=== PATIENT | male | born 1980 ===

== ENCOUNTER 2024-12-04 06:10 | Day surgery (SDC) | payer BC, SELFPAY ==
[2024-12-04] VITALS (8 sets, daily range): BP systolic 119–138; BP diastolic 57–100; BMI 49.9
[2024-12-04] MEDS: TYLENOL 1000 MG PO (06:37)
[2024-12-04] MEDS: MOBIC 15 MG PO (06:38)
[2024-12-04] MEDS: NORMOSOL-R/PLASMALYTE-A 1000 IV (06:38)
== END 2024-12-04 09:40 | disposition home or self-care (01) ==
LOC: SDS 06:10
PROVIDERS: ATTENDING PHYSICIAN Orthopaedic Surgery Hand Surgery
DX: G56.01 Carpal tunnel syndrome, right upper limb (principal); G56.21 Lesion of ulnar nerve, right upper limb
CPT/HCPCS: 64718; 29848

== ENCOUNTER 2024-12-26 05:47 | Day surgery (SDC) | payer BC, SELFPAY ==
[2024-12-26] VITALS (7 sets, daily range): BP systolic 124–137; BP diastolic 57–76; BMI 49.8
[2024-12-26] MEDS: TYLENOL 1000 MG PO (06:37)
[2024-12-26] MEDS: CELEBREX 200 MG PO (06:37)
[2024-12-26] MEDS: NORMOSOL-R/PLASMALYTE-A 1000 IV (06:45)
== END 2024-12-26 09:43 | disposition home or self-care (01) ==
LOC: SDS 05:47
PROVIDERS: ATTENDING PHYSICIAN Orthopaedic Surgery Hand Surgery
DX: G56.22 Lesion of ulnar nerve, left upper limb (principal); G56.02 Carpal tunnel syndrome, left upper limb
CPT/HCPCS: 64718; 29848